=== PATIENT | female | born 1975 | race Caucasian/White ===

== ENCOUNTER 2017-06-05 12:15 | Emergency (ER) | payer MEDICAID, OTHER ==
[~2017-06-05] VITALS: Ht 149.9 cm; Wt 133.0 kg
[~2017-06-05 12:15] MED LIST: HYDR12.57 PO; LEVO-86 PO; TOPA100T11 PO; VIST25CA PO
[2017-06-05 12:22] VITALS: BP 162/90; PULSE 90; RESP 17; O2SAT 95
--- NOTE | 2017-06-05 14:22 | RADRPT ---
EXAM DATE/TIME: 06/05/2017 13:25 [place] COMPARISON: No previous studies available for comparison. INDICATIONS : Bilateral leg swelling. MEDICAL HISTORY : Bilateral leg swelling. SURGICAL HISTORY : section.Tubal ligation. Uterine ablation. Hernia repair. Foot surgery. ENCOUNTER: Initial ACUITY: 3 weeks PAIN SCORE: 8/10 LOCATION: Bilateral legs. TECHNIQUE: Venous ultrasound of the left and right leg was performed from the inguinal ligament to the proximal calf. Real-time, color Doppler and spectral tracing, compression and augmentation techniques were us ed. FINDINGS: RIGHT LEG: There is normal compressibility of the deep venous system from the inguinal region to the proximal ca lf. No echogenic clot is seen in the lumen of the common femoral, femoral, popliteal, and posterior tibial veins. There is a normal response of the venous system to proximal and distal augmentation an d respiration. LEFT LEG: There is normal compressibility of the deep venous system from the inguinal region to the proximal ca lf. No echogenic clot is seen in the lumen of the common femoral, femoral, popliteal, and posterior tibial veins. There is a normal response of the venous system to proximal and distal augmentation an d respiration. CONCLUSION: No evidence of DVT. Pedro Bobo MD on June 05, 2017 at 14:19 Board Certified Radiologist. This report was verified electronically.
--- NOTE | 2017-06-05 15:02 | PD ---
Physical Exam Date Seen by Provider: Jun 05, 2017 Time Seen by Provider: 14:15 Narrative Case was initially seen by Dr. Munoz in [place], please see previous note for further details, sent in to get ultrasound of the legs to rule out DVT. Last 24 hours Impressions Lower Extremity Ultrasound 06/05/17 1248 Signed Impressions: Service Date/Time: Monday, June 05, 2017 13:25 - CONCLUSION: No evidence of DVT. Pedro Bobo MD Ultrasound shows no signs of DVT. At this point, my plan would be to release the patient would follow-up to primary care physician. Return for new issues as needed. The plan has been discussed with her and she states understanding. Data Data Last Documented VS Vital Signs Date Time Temp Pulse Resp B/P (MAP) Pulse Ox O2 Delivery O2 Flow Rate FiO2 06/05/17 12:22 90 17 162/90 (114) 95 Orders Orders Us Leg Venous Doppler Bilat (06/05/17 12:48) Ed Discharge Order (06/05/17 14:57) [facility] Medical Record Reviewed: Yes Supervised Visit with WILDER: No Diagnosis Primary Impression: Leg swelling Disposition: 01 DISCHARGE HOME Condition: Stable Sally Guaman MD Jun 05, 2017 15:02
[2017-06-05] MEDS ORDERED: HYDR-3533 PO (15:12)
== END 2017-06-05 17:45 | disposition home or self-care (01) ==
LOC: NEPC 12:15
DX: M79.89 Other specified soft tissue disorders (principal)
CPT/HCPCS: 93970; 99281; 99285